=== PATIENT | female | born 1965 | race Caucasian/White ===

== ENCOUNTER 2020-10-02 11:51 | Day surgery (SDC) | payer OTHER ==
[2020-10-01 16:14] VITALS: BMI 37.5
[2020-10-02] MEDS ORDERED: MIDAZOLAM HCL 2 MG/2 ML SINGLE DOSE VIAL ONE ×4 (12:48→16:16)
[2020-10-02] MEDS ORDERED: PROPOFOL 20 ML ONE ×5 (12:49→14:01)
[2020-10-02] MEDS ORDERED: LIDOCAINE HCL/PF 2% SDV 5ML VIAL ONE (12:49)
[2020-10-02] MEDS ORDERED: DEXAMETHASONE SOD PHOSPHATE 4 MG/1 ML VIAL ONE (12:50)
[2020-10-02] MEDS ORDERED: ONDANSETRON 4 MG/2 ML VIAL ONE (12:50)
[2020-10-02] MEDS ORDERED: KETOROLAC TROMETHAMINE 30 MG/1 ML VIAL ONE (12:50)
[2020-10-02] MEDS ORDERED: ROPIVACAINE HCL 0.5% 30ML VIAL ONE (12:52)
[2020-10-02] MEDS ORDERED: BUPIVACAINE HCL/PF 0.5% (5MG/ML) 10 ML VIAL ONE (12:52)
[2020-10-02] MEDS ORDERED: ONDANSETRON 4 MG/2 ML VIAL IVPUSH PRN (13:02)
[2020-10-02] MEDS ORDERED: LACTATED RINGERS SOLUTION 1,000 ML IV SCH (13:15)
[2020-10-02] MEDS ORDERED: SODIUM CHLORIDE 0.9% P/F 10 ML VIAL IJ ONE (14:01)
[2020-10-02] MEDS ORDERED: ceFAZolin SODIUM 1 GM VIAL ONE (14:01)
[2020-10-02] MEDS ORDERED: TRANEXAMIC ACID 1000 MG/10 ML VIAL ONE (14:12)
[2020-10-02] MEDS ORDERED: GLYCOPYRROLATE 0.2 MG/1 ML VIAL ONE (15:17)
[2020-10-02 18:31] VITALS: TEMP 98.6
[2020-10-02 19:08] VITALS: BP 130/70; PULSE 74
== END 2020-10-02 19:17 | disposition home or self-care (01) ==
LOC: FASU 11:51
PROVIDERS: ATTEND Orthopaedic Surgery Sports Medicine
PROC: 0QSH04Z Reposition Left Tibia with Internal Fixation Device, Open Approach (ICD-10-PCS; 2020-10-02)
PROC: 0QSK04Z Reposition Left Fibula with Internal Fixation Device, Open Approach (ICD-10-PCS; principal; 2020-10-02 14:12)
DX: S82.842A Displaced bimalleolar fracture of left lower leg, initial encounter for closed fracture (principal); X58.XXXA Exposure to other specified factors, initial encounter; Y93.9 Activity, unspecified; Y92.9 Unspecified place or not applicable; Y99.9 Unspecified external cause status
CPT/HCPCS: 27814; C1713; 73610-TC-RT-FY; 94760